=== PATIENT | female | born 1940 | race Caucasian/White ===

== ENCOUNTER → 2018-07-21 | Outpatient (CLI) | payer MEDICARE, OTHER ==
[~2018-07-21] MED LIST: ALPR1 PO; ASPI325 PO; ASPI81EC PO; ATOR20 PO; CLOP75 PO; DIPH50 PO; ESTR.05PBW TOP; HYDACE5 PO; METO100ER PO; TRAM50 PO
[2018-07-21 16:00] LABS: Source, Urine Clean Catch
[2018-07-21 17:55] LABS: Bilirubin, Urine Neg (Neg); Blood, Urine 2+ (Neg); Glucose Qualitative, Urine Neg (Neg); Ketones, Urine 1+ (Neg); Leukocyte Esterase, Urine 2+ (Neg); Nitrite, Urine Neg (Neg); Protein, Urine 1+ (Neg); Urobilinogen, Urine NORM (Normal)
[2018-07-21 18:10] LABS: Appearance, Urine Hazy (Clear); Color, Urine Yellow (P-Yellow)
[2018-07-21 18:12] LABS: Bacteria Many /hpf; Squamous Epithelial Cells Few /hpf (Few); White Blood Cells, Urine TNTC /hpf (0-5)
== END ==
LOC: LAB 15:54 → LAB SHORT 15:54
PROVIDERS: Obstetrics & Gynecology Gynecology
DX: R30.0 Dysuria (principal)
CPT/HCPCS: 81001; 87077; 87086; 87186

== ENCOUNTER → 2018-12-16 | Outpatient (CLI) | payer MEDICARE, OTHER ==
[2018-12-21 08:11] LABS: HPV 16 Negative (Negative); HPV 18 Negative (Negative); HPV OTHER HR TYPES Negative (Negative)
== END | disposition home or self-care (01) ==
LOC: LAB SHORT 14:37 → LAB 14:37
PROVIDERS: Nurse Practitioner Women's Health
DX: Z12.72 Encounter for screening for malignant neoplasm of vagina (principal); Z91.89 Other specified personal risk factors, not elsewhere classified
CPT/HCPCS: 87624; G0123

== ENCOUNTER → 2019-01-15 | Outpatient (CLI) | payer MEDICARE, OTHER ==
[2019-01-18 13:17] LABS: Stool Occult Bld Immuno 1 Negative (NEGATIVE); Stool Occult Bld Immuno 2 Negative (NEGATIVE)
== END | disposition home or self-care (01) ==
LOC: LAB SHORT 12:30 → LAB 12:30
PROVIDERS: Internal Medicine
DX: Z12.11 Encounter for screening for malignant neoplasm of colon (principal)
CPT/HCPCS: G0328

== ENCOUNTER → 2019-01-31 | Outpatient (CLI) | payer MEDICARE, OTHER ==
[2019-01-31 16:43] LABS: BASOPHILS ABSOLUTE AUTO 0.04 K/mm3 (0.00-0.23); BASOPHILS PERCENT AUTO 1 % (0-2); EOSINOPHILS ABSOLUTE AUTO 0.22 K/mm3 (0.00-0.68); EOSINOPHILS PERCENT AUTO 3 % (0-6); Hematocrit 42.2 % (33.0-51.0); Hemoglobin 14.1 g/dL (11.5-16.0); IMMATURE GRAN ABSOLUTE AUTO 0.02 K/mm3 (0.00-0.10); IMMATURE GRAN PERCENT AUTO 0 % (0-1); LYMPHOCYTES ABSOLUTE AUTO 2.11 K/mm3 (0.84-5.20); LYMPHOCYTES PERCENT AUTO 30 % (21-46); MONOCYTES ABSOLUTE AUTO 0.49 K/mm3 (0.16-1.47); MONOCYTES PERCENT AUTO 7 % (4-13); Mean Corpuscular HGB 30.1 pg (26.0-34.0); Mean Corpuscular HGB Conc 33.4 g/dL (31.5-36.5); Mean Corpuscular Volume 90 fL (80-100); Mean Platelet Volume 9.6 fL (9.1-12.4); NEUTROPHILS ABSOLUTE AUTO 4.08 K/mm3 (1.96-9.15); NEUTROPHILS PERCENT AUTO 59 % (41-73); Platelet Count 236 K/mm3 (150-400); RDW Coefficient Variation 13.2 % (11.7-14.2); RDW Standard Deviation 43.2 fL (35.1-46.3); Red Blood Cell Count 4.68 M/mm3 (3.80-5.20); White Blood Cell Count 6.96 K/mm3 (4.00-11.30)
[2019-01-31 16:56] LABS: Anion Gap 12 mmol/L (6-16); Blood Urea Nitrogen 10 mg/dL (8-24); Bun/Creatinine Ratio 10.6 (12.0-20.0); CO2, Blood 28 mmol/L (21-32); Chloride, Blood 101 mmol/L (98-108); Creatinine, Blood 0.94 mg/dL (0.40-1.00); Glomerular Filtration Rate 58 (60-); Glucose, Blood 102 mg/dL (70-99); Potassium, Blood 4.1 mmol/L (3.5-5.5); Sodium, Blood 141 mmol/L (136-145)
[2019-01-31 16:57] LABS: Troponin I <0.017 ng/mL (0.000-0.040)
== END | disposition home or self-care (01) ==
LOC: LAB SHORT 16:37 → LAB EV 16:37
PROVIDERS: Family Medicine
DX: R07.89 Other chest pain (principal)
CPT/HCPCS: 80048; 83880; 84484; 85025; 85379

== ENCOUNTER 2019-06-06 19:53 | Inpatient (IN) | payer MEDICARE, OTHER ==
[~2019-06-06] VITALS: Ht 157.5 cm; Wt 61.2 kg
[2019-06-06 20:34] LABS: BASOPHILS ABSOLUTE AUTO 0.04 K/mm3 (0.00-0.23); BASOPHILS PERCENT AUTO 1 % (0-2); EOSINOPHILS ABSOLUTE AUTO 0.26 K/mm3 (0.00-0.68); EOSINOPHILS PERCENT AUTO 3 % (0-6); Hematocrit 44.9 % (33.0-51.0); Hemoglobin 14.6 g/dL (11.5-16.0); IMMATURE GRAN ABSOLUTE AUTO 0.01 K/mm3 (0.00-0.10); IMMATURE GRAN PERCENT AUTO 0 % (0-1); LYMPHOCYTES ABSOLUTE AUTO 2.19 K/mm3 (0.84-5.20); LYMPHOCYTES PERCENT AUTO 26 % (21-46); MONOCYTES ABSOLUTE AUTO 0.46 K/mm3 (0.16-1.47); MONOCYTES PERCENT AUTO 6 % (4-13); Mean Corpuscular HGB Conc 32.5 g/dL (31.5-36.5); Mean Corpuscular Volume 92 fL (80-100); Mean Platelet Volume 9.9 fL (9.1-12.4); NEUTROPHILS ABSOLUTE AUTO 5.37 K/mm3 (1.96-9.15); NEUTROPHILS PERCENT AUTO 65 % (41-73); Platelet Count 262 K/mm3 (150-400); RDW Coefficient Variation 12.9 % (11.7-14.2); RDW Standard Deviation 43.7 fL (35.1-46.3); Red Blood Cell Count 4.87 M/mm3 (3.80-5.20); White Blood Cell Count 8.33 K/mm3 (4.00-11.30)
[2019-06-06 21:00] LABS: Alanine Aminotransfer (ALT/SGP 26 U/L (12-78); Albumin, Blood 4.1 g/dL (3.4-5.0); Albumin/Globulin Ratio 1.1 (0.8-1.8); Alk Phos 89 U/L (50-136); Anion Gap 5 mmol/L (6-16); Aspartate Aminotrans (AST/SGOT 29 U/L (12-37); Bilirubin, Total 0.8 mg/dL (0.1-1.0); Blood Urea Nitrogen 7 mg/dL (8-24); Bun/Creatinine Ratio 9.3 (12.0-20.0); CO2, Blood 28 mmol/L (21-32); Calcium, Blood 8.8 mg/dL (8.5-10.1); Chloride, Blood 107 mmol/L (98-108); Creatinine, Blood 0.75 mg/dL (0.40-1.00); Globulin, Blood 3.8 g/dL (2.2-4.0); Glomerular Filtration Rate >60 (60-); Glucose, Blood 108 mg/dL (70-99); Potassium, Blood 4.1 mmol/L (3.5-5.5); Sodium, Blood 140 mmol/L (136-145); Total Protein, Blood 7.9 g/dL (6.4-8.2); Troponin I 0.244 ng/mL (0.000-0.040)
[2019-06-06 21:59] LABS: International Normalized Ratio 0.96; Prothrombin Time Results 10.2 Sec (9.7-11.5)
[2019-06-06] MEDS ORDERED: CHOL10002 PO (22:21)
[2019-06-06] MEDS ORDERED: ATOR10 PO (22:22)
[2019-06-06] MEDS ORDERED: CYSTEX TABLET1 EACH PO (22:23)
[2019-06-06] MEDS ORDERED: Alprazolam0.25 MG PO (22:27)
[2019-06-06] MEDS ORDERED: CALTRATE 600 +1 EACH PO (22:28)
[2019-06-06] MEDS ORDERED: Women's Daily1 EACH PO (22:29)
[2019-06-06] MEDS ORDERED: CLON.1 PO (22:36)
--- NOTE | 2019-06-06 23:20 | NUR ---
RECEIVED REPORT FROM BENJAMIN RN @[id number]
[2019-06-07] MEDS ORDERED: BENADRYL25 MG PO (00:04)
--- NOTE | 2019-06-07 05:00 | NUR ---
END OF SHIFT SUMMARY ASSUMED CARE OF PT FROM ED. ARRIVED VIA STRETCHER BUT WALKED INDEPENDENTLY TO PCU BED. SLIGHT SOB NOTED. PT VERY COOPERATIVE WOTH STAFF AND TALKS APPROPRIATELY. PT DUNCAN CONTINUED TO DENY CP/PRESSURE, R SIDED NECK PAIN CONTINUES BUT HAS LESSENED PER PT STATEMENT. LL NOTED TO HAVE EDEMA. CT NEGATIVE FOR PE. CT STATES POSSIBILITY OF RETURN OF LUNG CANCER, THIS WILL BE RELAYED TO ONCOMING NURSE. LUNG SOUNDS NOTED TO BE VERY DIM T/O AND ABSENT IN THE BASES, PT HAS HAD BILAT LOBECTOMIES. PT ARRIVES TGO UNIT WITH HEPARIN GTT, INF RATE VERIFIED WITH MANUEL CORDERO. PT HYPERTENSIVE UPON ADMISSION AT SBP>180. HOME DOSE OF CATAPRES GIVEN AND SBP IS NOW 120'S. OT TO HAVE ECHO AND LEG ULTRASOUND DURING DAY SHIFT. AWAITING TO SEE NEW TROPONIN RESULTS. CALL LIGHT WTHIN REACH. USES JULIA LIGHT APPROPRUIATELY. WILL CONTINUE TO MONITOR PT UNTIL SHIFT CHANGE.
[2019-06-07 05:43] LABS: CHOL/HDL RATIO 3.1; Cholesterol 150 mg/dL (50-200); HDL Cholesterol 49 mg/dL (>39); LDL/HDL RATIO 1.4; Low Density Lipoprotein Chol 69 mg/dL (0-110); Triglycerides 159 mg/dL (30-160); Very Low Density Lipoprot Chol 31 mg/dL (6-32)
--- NOTE | 2019-06-07 08:36 | NUR ---
ECHOCARDIOGRAM COMPLETED
--- NOTE | 2019-06-07 15:55 | NUR ---
CONSULTS FROM CARDIOLOGY PER TELEPHONE ORDER. PT IS TO HAVE ANGIO TONIGHT AND IS NOW NPO. CONSENT WAS SIGNED. HEPARIN CRICKET REMAINS ON PATIENT. NITRO PATCH ON LEFT CHEST WALL. PT COMPLAINS OF RIGHT SHOULDER PAIN. IS NOTIFIED BY THIS RN. PT AMBULATES TO BATHROOM WITH SBA.
--- NOTE | 2019-06-07 16:13 | NUR ---
[facility] NURSE HERE TO PREP PATIENT AND TO TAKE HER TO HEART CENTER
--- NOTE | 2019-06-07 17:51 | NUR ---
END OF SHIFT; PT RETURNS FROM [facility]. ONE STENT IN COMMON RCA. 13ML AIR IN TR BAND NO BLEEDING NOTED. FAMILY AT BEDSIDE. AGGRASTAT INFUSING MD ORDERED. ONE LITER SALINE PIGGY BACK ON SAME LINE. BLOOD PRESSURE IS HYPERTENSIVE WILL CONITNUE TO MONITOR THIS CLOSELY.
--- NOTE | 2019-06-07 20:12 | NUR ---
PCU NIGHTSHIFT ASSUMED CARE OF PT APPROX. 1900. PT A&OX4. ASSESSMENT COMPLETED. VITAL SIGNS STABLE. PT HAS RIGHT RADIAL SITE. TR BAND REMAINS IN PLACE WITH ARMBOARD IN PLACE. PIN PIONT INCISION NOTED WITH NO DRAINAGE. BRUISE ABOVE TR BAND NOTED BUT PT REPROTS THIS TO BE AN OLD BRUISE. BLOOD PRESSURE TAKEN ON LEFT LEG DUE TO PREVIOUS BILAT MASTECTOMY AND REMOVAL OF LYMPHNODES. PT HAS FAMILY AT BEDSIDE AT THIS TIME. ABLE TO ANSWER QUESTIONS THEY CAME UP. BED IN LOW POSITON, CALL LIGHT IN REACH AND PT DENIES ANY NEEDS. WILL CONTINUE TO MONITOR.
--- NOTE | 2019-06-08 05:01 | NUR ---
SHIFT SUMMARY PT PLEASANT, COOPERATIVE AND USES CALL LIGHT APPROPRAITELY. PT REMAINS A&OX4. VITAL SIGNS REMAIN STABLE AND ASSESSMENT FINDINGS REMAIN UNCHANGED. PT ABLE TO REST FOR MOST OF SHIFT. ALL AIR WAS RELEASED FROM TR BAND AT APPROX. 0310. TR BAND NOW REMOVED AND TEGADERM DRESSING PLACE AT INCERSION SITE. NO S/SX OF BLEEDING, HEMATOMA OR SWELLING AT SITE. NO CHANGES IN DRAINAGE SINCE START OF SHIFT. BRUISE NOTED ABOVE INCISION SITE REMAINS UNCHANGED. SITE REMAINS NON TENDER AND DENIES ANY NUMBNESS OR TINGLING IN FINGERS DISTAL TO SITE. PT ABLE TO AMBUALTE TO BEDSIDE COMMODE NEEDED AND TOLERATED WELL. FAMILY NO LONGER AT BEDSIDE. PT WAS ABLE TO REST MOST OF SHIFT. BED IN LOW POSITION, CALL LIGHT IN REACH AND PT DENIES ANY NEEDS AT THIS TIME. WILL CONTINUE TO MONITOR UNTIL HANDOFF TO DAYSHIFT RN.
[2019-06-08] MEDS ORDERED: ASPI81CH PO (12:12)
[2019-06-08] MEDS ORDERED: LISI20 PO (12:13)
== END 2019-06-08 12:10 | disposition home or self-care (01) | DRG 247 ==
LOC: ER 19:53 → PCU 22:49
PROVIDERS: Emergency Medicine; ADMIT Internal Medicine
PROC: 027034Z Dilation of Coronary Artery, One Artery with Drug-eluting Intraluminal Device, Percutaneous Approach (ICD-10-PCS; principal; 2019-06-07)
PROC: 4A023N7 Measurement of Cardiac Sampling and Pressure, Left Heart, Percutaneous Approach (ICD-10-PCS; 2019-06-07)
PROC: B2111ZZ Fluoroscopy of Multiple Coronary Arteries using Low Osmolar Contrast (ICD-10-PCS; 2019-06-07)
DX: I21.4 Non-ST elevation (NSTEMI) myocardial infarction (principal); Z79.02 Long term (current) use of antithrombotics/antiplatelets; I10 Essential (primary) hypertension; J44.9 Chronic obstructive pulmonary disease, unspecified; Z86.73 Personal history of transient ischemic attack (TIA), and cerebral infarction without residual deficits; Z87.891 Personal history of nicotine dependence; E78.5 Hyperlipidemia, unspecified; I25.10 Atherosclerotic heart disease of native coronary artery without angina pectoris
CPT/HCPCS: 36415; 71046; 71260; 80053; 80061; 84484; 85025; 85610; 85730; 93005; 93010; 93306; 93454; 93970; 96374-59; 99152; 99153; 99285-25; C1725; C1769; C1874; C1887; C1894; C9600; J0360; J1644; J2250; J3010; J3246; J7030; Q9967

== ENCOUNTER → 2020-01-04 | Outpatient (CLI) | payer MEDICARE, OTHER ==
[~2020-01-04] MED LIST changes: +ASPI81CH PO; +ATOR10 PO; +Alprazolam0.25 MG PO; +BENADRYL25 MG PO; +CALTRATE 600 +1 EACH PO; +CHOL10002 PO; +CLON.1 PO; +CYSTEX TABLET1 EACH PO; +LISI20 PO; +Women's Daily1 EACH PO
== END | disposition home or self-care (01) ==
LOC: PLD 08:11 → LAB SHORT 08:11
DX: D48.5 Neoplasm of uncertain behavior of skin (principal)
CPT/HCPCS: 88305

== ENCOUNTER → 2020-07-11 | Outpatient (CLI) | payer MEDICARE, OTHER | END | disposition home or self-care (01) | LOC: PLD 11:49 → LAB SHORT 11:49 | DX: D48.5 Neoplasm of uncertain behavior of skin (principal) | CPT/HCPCS: 88305 ==

== ENCOUNTER → 2021-09-10 | Outpatient (CLI) | payer MEDICARE, OTHER | END | disposition home or self-care (01) | LOC: LAB SHORT 13:59 → LAB 13:59 | DX: D48.5 Neoplasm of uncertain behavior of skin (principal) | CPT/HCPCS: 88305 ==

== ENCOUNTER 2025-10-10 23:03 | Inpatient (IN) | payer OTHER | END 2025-10-12 17:00 | disposition home or self-care (01) | DRG 193 | LOC: ER 23:03 → ERHOLD 10-11 00:53 → MEDS 10-11 03:16 | PROVIDERS: ADMIT Student in an Organized Health Care Education/Training Program | DX: J18.9 Pneumonia, unspecified organism (principal); J96.01 Acute respiratory failure with hypoxia; J98.11 Atelectasis; E87.1 Hypo-osmolality and hyponatremia; C34.02 Malignant neoplasm of left main bronchus; I50.9 Heart failure, unspecified; T50.2X5A Adverse effect of carbonic-anhydrase inhibitors, benzothiadiazides and other diuretics, initial encounter; E87.6 Hypokalemia; R79.89 Other specified abnormal findings of blood chemistry; J43.9 Emphysema, unspecified; I11.0 Hypertensive heart disease with heart failure; Z85.118 Personal history of other malignant neoplasm of bronchus and lung; Z90.2 Acquired absence of lung [part of]; Z85.3 Personal history of malignant neoplasm of breast; Z90.13 Acquired absence of bilateral breasts and nipples; Z86.73 Personal history of transient ischemic attack (TIA), and cerebral infarction without residual deficits; Z88.1 Allergy status to other antibiotic agents; Z88.5 Allergy status to narcotic agent; Z88.8 Allergy status to other drugs, medicaments and biological substances; Z79.02 Long term (current) use of antithrombotics/antiplatelets; Z79.82 Long term (current) use of aspirin; Z87.891 Personal history of nicotine dependence ==

== ENCOUNTER → 2025-11-24 | Outpatient (CLI) | payer OTHER ==
[~2025-11-24] MED LIST changes: +ACET325 PO; +ALPR.25 PO; +AZIT250 PO; +CATAPRES0.1 MG PO; +CEFP200 PO; +Calcium Carbon500 MG PO; +FURO40 PO; +GUAI600T33 PO; +HYDCHL25 PO; +JARDIANCE10 MG PO; +KLOR-CON 1010 ME9 PO; +LOSA25 PO; +METO25 PO; +Prednisone10 MG PO; +SPIR25 PO; +VISBIOME 112.51 EACH PO; +Vitamin D1000 UNI1 PO
== END ==
LOC: LAB SHORT 13:42 → LAB 13:42
DX: R30.0 Dysuria (principal)
CPT/HCPCS: 87077; 87086; 87186